=== PATIENT | male | born 1945 | race American Indian/Alaskan Native ===

== ENCOUNTER 2022-06-04 13:47 | Inpatient (IN) | payer MEDICARE ==
--- NOTE | 2022-06-04 14:48 | XRay Report ---
CHEST 1 VIEW 06/04/2022 2:31 PM INDICATION / CLINICAL INFORMATION: Chest Pain. COMPARISON: None available. FINDINGS: SUPPORT DEVICES: None. HEART / MEDIASTINUM: No significant abnormality. LUNGS / PLEURA: No significant pulmonary or pleural abnormality. No pneumothorax. ADDITIONAL FINDINGS: No significant additional findings. IMPRESSION: 1. No acute findings. Signer Name: Josh Montilla Jr, MD Signed: 06/04/2022 2:44 PM Workstation Name: [id number]
[2022-06-04 14:54] LABS: Basophils # (Auto) 0.1 K/mm3 (0.0-0.1); Basophils % (Auto) 0.5 % (0.0-1.8); Eosinophils # (Auto) 0.1 K/mm3 (0.0-0.4); Eosinophils % (Auto) 1.4 % (0.0-4.3); Hematocrit 35.6 % (35.5-45.6); Hemoglobin 11.6 gm/dl (11.8-15.2); Lymphocytes # (Auto) 1.3 K/mm3 (1.2-5.4); Lymphocytes % (Auto) 12.6 % (13.4-35.0); Mean Corpuscular HGB Conc 33 % (32-34); Mean Corpuscular Volume 92 fl (84-94); Monocytes % (Auto) 9.5 % (0.0-7.3); Platelet Count 198 K/mm3 (140-440); Red Blood Count 3.89 M/mm3 (3.65-5.03); Red Cell Distribution Width 14.9 % (13.2-15.2)
--- NOTE | 2022-06-04 15:02 | Emergency Department Report ---
ED General Adult HPI - General Chief complaint: Chest Pain Stated complaint: NAUSEA/VOMITING/BRADYCARDIA Time Seen by Provider: 06/04/22 14:45 Source: patient, family, EMS ( EMS documentation not available at time of chart dictation ), RN notes reviewed Mode of arrival: Stretcher Limitations: Other (Patient is demented) - History of Present Illness Initial comments: The patient was evaluated in the emergency department for symptoms described in the history of present illness. He/she was evaluated in the context of the global COVID-19 pandemic, which necessitated consideration that the patient might be at risk for infection with the virus that causes COVID-19. Institutional protocols and algorithms that pertain to the evaluation of patients at risk for COVID-19 are in a state of rapid change based on information released by regulatory bodies including the CDC and federal and state organizations. These policies and algorithms were followed during the patient's care in the emergency department. Please note that these policies, procedures and recommendations changed on a rapid basis. This is a 77-year-old gentleman. Past medical history includes dementia, hypertension, diabetes, high cholesterol, and possible carotid artery disease. The patient himself is demented, and has no complaints. He denies physical pain. He is smiling and cooperative. He moves 4 extremities. He does not know why he is here. His primary care doctor is Dr. Yany Burton. History obtained from speaking to patient's [id number] As per the patient's , the patient was in his usual state of health, leaving primary care doctor's office to go home, she stopped to go into the shoe store, and reports that while in the car, the patient became unresponsive, gurgling, with his hat over his eyes. This lasted for a few seconds to a few minutes. She is not sure. There was no shaking episode that she is aware of. This resolved on its own. His current medications include benazepril, aspirin, valsartan, metoprolol, pioglitazone, atorvastatin, Plavix, and HCTZ. She further reports that the patient has had no vomiting, diarrhea, fevers or chills that she is aware of. She also believes that the patient had a recent echocardiogram, which she thinks was essentially unremarkable. Patient has no recollection of any of these events. EMS articulated to nursing staff that the patient has a heart rate in the high 40s -: Sudden Severity scale (0 -10): 0 Consistency: now resolved - Related Data Allergies Allergy/AdvReac Type Severity Reaction Status Date / Time No Known Allergies Allergy Unverified 06/04/22 14:15 ED Review of Systems ROS: Stated complaint: NAUSEA/VOMITING/BRADYCARDIA Other details as noted in HPI Comment: Unobtainable due to pts medical conditions (Review of systems as per family) Constitutional: denies: fever Eyes: denies: eye discharge Cardiovascular: syncope Gastrointestinal: denies: nausea, vomiting, hematemesis, melena, hematochezia Genitourinary: denies: frequency Neurological: confusion ED Past Medical Hx - Past Medical History Hx Hypertension: Yes Hx Diabetes: Yes Hx Dementia: Yes 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 Absent: nystagmus - ENT ENT exam: Present: normal exam, normal orophraynx, mucous membranes moist, normal external ear exam - Neck Neck exam: Present: normal inspection, full ROM. Absent: tenderness, meningismus - Respiratory Respiratory exam: Present: normal lung sounds bilaterally. Absent: respiratory distress - Cardiovascular Cardiovascular Exam: Present: normal rhythm, bradycardia, normal heart sounds. Absent: tachycardia, irregular rhythm, systolic murmur, diastolic murmur, rubs, gallop - GI/Abdominal GI/Abdominal exam: Present: soft. Absent: distended, tenderness, guarding, rebound, rigid, pulsatile mass - Rectal Rectal exam: Present: deferred - Extremities Exam Extremities exam: Present: normal inspection, full ROM, other (2+ pulses noted in the bilateral upper and lower extremities. There is no palpable cord. negative Homans sign. Muscular compartments are soft. The pelvis is stable.). Absent: pedal edema, calf tenderness - Back Exam Back exam: Present: normal inspection, full ROM. Absent: tenderness, CVA tenderness (R), CVA tenderness (L), paraspinal tenderness, vertebral tenderness - Neurological Exam Neurological exam: Present: other (Patient is awake and alert to name. The patient follows commands. The patient moves 4 extremities. Sensation is intact to light touch in 4 extremities.) - Psychiatric Psychiatric exam: Present: anxious - Skin Skin exam: Present: warm, dry, intact, normal color. Absent: rash ED Course Vital Signs 06/04/22 06/04/22 06/04/22 14:01 14:14 14:15 Temperature 97.8 F Pulse Rate 48 L 50 L Respiratory 20 20 Rate Blood Pressure 132/58 Blood Pressure 132/58 [Right] O2 Sat by Pulse 94 99 Oximetry 06/04/22 06/04/22 15:57 18:46 Temperature Pulse Rate 49 L 46 L Respiratory 20 20 Rate Blood Pressure Blood Pressure 129/49 129/49 [Right] O2 Sat by Pulse 98 96 Oximetry ED Medical Decision Making - Lab Data Result diagrams: 06/04/22 14:36 06/04/22 14:36 Vital Signs 06/04/22 06/04/22 06/04/22 14:01 14:14 14:15 Temperature 97.8 F Pulse Rate 48 L 50 L Respiratory 20 20 Rate Blood Pressure 132/58 Blood Pressure 132/58 [Right] O2 Sat by Pulse 94 99 Oximetry 06/04/22 06/04/22 15:57 18:46 Temperature Pulse Rate 49 L 46 L Respiratory 20 20 Rate Blood Pressure Blood Pressure 129/49 129/49 [Right] O2 Sat by Pulse 98 96 Oximetry Lab Results 06/04/22 06/04/22 06/04/22 Range/Units 14:25 14:36 14:36 WBC 10.3 (4.5-11.0) K/mm3 RBC 3.89 (3.65-5.03) M/mm3 Hgb 11.6 L (11.8-15.2) gm/dl Hct 35.6 (35.5-45.6) % MCV 92 (84-94) fl MCH 30 (28-32) pg MCHC 33 (32-34) % RDW 14.9 (13.2-15.2) % Plt Count 198 (140-440) K/mm3 Lymph % (Auto) 12.6 L (13.4-35.0) % [place] % (Auto) 9.5 H (0.0-7.3) % Eos % (Auto) 1.4 (0.0-4.3) % Baso % (Auto) 0.5 (0.0-1.8) % Lymph # (Auto) 1.3 (1.2-5.4) K/mm3 [place] # (Auto) 1.0 H (0.0-0.8) K/mm3 Eos # (Auto) 0.1 (0.0-0.4) K/mm3 Baso # (Auto) 0.1 (0.0-0.1) K/mm3 Seg Neutrophils % 76.0 H (40.0-70.0) % Seg Neutrophils # 7.8 H (1.8-7.7) K/mm3 PT 13.2 (12.2-14.9) Sec. INR 0.91 (0.87-1.13) APTT 31.1 (24.2-36.6) Sec. Sodium (137-145) mmol/L Potassium (3.6-5.0) mmol/L Chloride (98-107) mmol/L Carbon Dioxide (22-30) mmol/L Anion Gap mmol/L BUN (9-20) mg/dL Creatinine (0.8-1.3) mg/dL Estimated GFR ml/min BUN/Creatinine Ratio % Glucose (75-100) mg/dL POC Glucose 116 H (70-105) mg/dL Calcium (8.4-10.2) mg/dL Total Bilirubin (0.1-1.2) mg/dL AST (5-40) units/L ALT (7-56) units/L Alkaline Phosphatase (35-129) units/L Troponin T (0.00-0.029) ng/mL Total Protein (6.3-8.2) g/dL Albumin (3.9-5) g/dL Albumin/Globulin Ratio % TSH (0.270-4.200) mlU/mL Free T4 (0.76-1.46) ng/dL Salicylates (2.8-20.0) mg/dL Acetaminophen (10.0-30.0) ug/mL Plasma/Serum Alcohol (0-0.07) % 06/04/22 06/04/22 06/04/22 Range/Units 14:36 15:33 15:33 WBC (4.5-11.0) K/mm3 RBC (3.65-5.03) M/mm3 Hgb (11.8-15.2) gm/dl Hct (35.5-45.6) % MCV (84-94) fl MCH (28-32) pg MCHC (32-34) % RDW (13.2-15.2) % Plt Count (140-440) K/mm3 Lymph % (Auto) (13.4-35.0) % [place] % (Auto) (0.0-7.3) % Eos % (Auto) (0.0-4.3) % Baso % (Auto) (0.0-1.8) % Lymph # (Auto) (1.2-5.4) K/mm3 [place] # (Auto) (0.0-0.8) K/mm3 Eos # (Auto) (0.0-0.4) K/mm3 Baso # (Auto) (0.0-0.1) K/mm3 Seg Neutrophils % (40.0-70.0) % Seg Neutrophils # (1.8-7.7) K/mm3 PT (12.2-14.9) Sec. INR (0.87-1.13) APTT (24.2-36.6) Sec. Sodium 141 (137-145) mmol/L Potassium 3.7 (3.6-5.0) mmol/L Chloride 103.5 (98-107) mmol/L Carbon Dioxide 27 (22-30) mmol/L Anion Gap 14 mmol/L BUN 14 (9-20) mg/dL Creatinine 1.0 (0.8-1.3) mg/dL Estimated GFR > 60 ml/min BUN/Creatinine Ratio 14 % Glucose 133 H (75-100) mg/dL POC Glucose (70-105) mg/dL Calcium 8.9 (8.4-10.2) mg/dL Total Bilirubin 0.20 (0.1-1.2) mg/dL AST 32 (5-40) units/L ALT 14 (7-56) units/L Alkaline Phosphatase 84 (35-129) units/L Troponin T < 0.010 (0.00-0.029) ng/mL Total Protein 6.6 (6.3-8.2) g/dL Albumin 4.0 (3.9-5) g/dL Albumin/Globulin Ratio 1.5 % TSH 3.980 (0.270-4.200) mlU/mL Free T4 1.14 (0.76-1.46) ng/dL Salicylates (2.8-20.0) mg/dL Acetaminophen (10.0-30.0) ug/mL Plasma/Serum Alcohol (0-0.07) % 06/04/22 06/04/22 06/04/22 Range/Units 15:33 15:33 15:33 WBC (4.5-11.0) K/mm3 RBC (3.65-5.03) M/mm3 Hgb (11.8-15.2) gm/dl Hct (35.5-45.6) % MCV (84-94) fl MCH (28-32) pg MCHC (32-34) % RDW (13.2-15.2) % Plt Count (140-440) K/mm3 Lymph % (Auto) (13.4-35.0) % [place] % (Auto) (0.0-7.3) % Eos % (Auto) (0.0-4.3) % Baso % (Auto) (0.0-1.8) % Lymph # (Auto) (1.2-5.4) K/mm3 [place] # (Auto) (0.0-0.8) K/mm3 Eos # (Auto) (0.0-0.4) K/mm3 Baso # (Auto) (0.0-0.1) K/mm3 Seg Neutrophils % (40.0-70.0) % Seg Neutrophils # (1.8-7.7) K/mm3 PT (12.2-14.9) Sec. INR (0.87-1.13) APTT (24.2-36.6) Sec. Sodium (137-145) mmol/L Potassium (3.6-5.0) mmol/L Chloride (98-107) mmol/L Carbon Dioxide (22-30) mmol/L Anion Gap mmol/L BUN (9-20) mg/dL Creatinine (0.8-1.3) mg/dL Estimated GFR ml/min BUN/Creatinine Ratio % Glucose (75-100) mg/dL POC Glucose (70-105) mg/dL Calcium (8.4-10.2) mg/dL Total Bilirubin (0.1-1.2) mg/dL AST (5-40) units/L ALT (7-56) units/L Alkaline Phosphatase (35-129) units/L Troponin T (0.00-0.029) ng/mL Total Protein (6.3-8.2) g/dL Albumin (3.9-5) g/dL Albumin/Globulin Ratio % TSH (0.270-4.200) mlU/mL Free T4 (0.76-1.46) ng/dL Salicylates < 0.3 L (2.8-20.0) mg/dL Acetaminophen 5.0 L (10.0-30.0) ug/mL Plasma/Serum Alcohol < 0.01 (0-0.07) % - EKG Data -: EKG Interpreted by Ca Rate: bradycardia - EKG Data When compared to previous EKG there are: previous EKG unavailable (There is no prior EKG available for comparison) 06/04/22 19:21 The EKG is interpreted at 14: 14 Sinus bradycardia, rate 49 bpm. Borderline leftward axis deviation, normal P wave axis, left ventricular hypertrophy, QTC is 4 3 6 ms. This is an abnormal EKG. This is not a STEMI. - Radiology Data Radiology results: pending, report reviewed, image reviewed CHEST 1 VIEW 06/04/2022 2:31 PM INDICATION / CLINICAL INFORMATION: Chest Pain. COMPARISON: None available. FINDINGS: SUPPORT DEVICES: None. HEART / MEDIASTINUM: No significant abnormality. LUNGS / PLEURA: No significant pulmonary or pleural abnormality. No pneumothorax. ADDITIONAL FINDINGS: No significant additional findings. IMPRESSION: 1. No acute findings. Signer Name: Josh Montilla Jr, MD Signed: 06/04/2022 1:44 PM Workstation Name: [id number] CT HEAD WITHOUT CONTRAST INDICATION / CLINICAL INFORMATION: Transient alteration in awareness. TECHNIQUE: All CT scans at this location are performed using CT dose reduction for ALARA by means of automated exposure control. COMPARISON: None available. FINDINGS: BRAIN PARENCHYMA: No acute intracranial hemorrhage. No evidence of recent infarct. No mass effect or midline shift. There is age-appropriate atrophy with probable chronic microvascular ischemic changes along the periventricular white matter. VENTRICULAR SYSTEM/EXTRA-AXIAL SPACES: Ventricles are normal for age. No extra-axial fluid collection. ORBITS: Normal as visualized. SKELETAL SYSTEM/SOFT TISSUES: Normal bones and soft tissues. PARANASAL SINUSES/MASTOID AIR CELLS: No significant abnormality. ADDITIONAL FINDINGS: There is moderate calcification of the internal carotid arteries. IMPRESSION: 1. No acute intracranial abnormality. 2. Additional find ings as above. Signer Name: Refugio Jurado MD Signed: 06/04/2022 2:30 PM Workstation Name: [id number] - Medical Decision Making Differential diagnosis, including but not limited to: Orthostasis, vagal event, structural cardiac disease, polypharmacy, UTI intracranial hemorrhage, pneumonia Assessment and plan: 77-year-old gentleman, who is currently afebrile, with reassuring vital signs, protecting his airway and moving 4 extremities, presenting today with asymptomatic bradycardia, heart rate 49 to 50 bpm, in the setting of taking metoprolol, however blood pressure is acceptable. Bradycardia likely secondary to medications. This is unlikely to be the cause of his loss of consciousness. CT scan brain unremarkable. X-ray chest unremarkable. Laboratory studies c urrently nondiagnostic. Currently awaiting urinalysis. Patient admitted to the medical service under the care of Dr. Eusebio Pineda for observation. Critical care attestation.: If time is entered above; I have spent that time in minutes in the direct care of this critically ill patient, excluding procedure time. ED Disposition Clinical Impression: Bradycardia, Dementia, Transient alteration of awareness Disposition: ADMITTED INPATIENT Is pt being admited?: Yes Does the pt Need Aspirin: Yes Condition: Stable
[2022-06-04 15:11] LABS: INR 0.91 (0.87-1.13)
[2022-06-04 15:12] LABS: Partial Thromboplastin Time 31.1 Sec. (24.2-36.6)
[2022-06-04 15:20] LABS: Alanine Aminotransferase 14 units/L (7-56); BUN/Creatinine Ratio 14; Blood Urea Nitrogen 14 mg/dL (9-20); Calcium 8.9 mg/dL (8.4-10.2); Hemolysis Index 14
--- NOTE | 2022-06-04 15:34 | Cat Scan Report ---
CT HEAD WITHOUT CONTRAST INDICATION / CLINICAL INFORMATION: Transient alteration in awareness. TECHNIQUE: All CT scans at this location are performed using CT dose reduction for ALARA by means of automated exposure control. COMPARISON: None available. FINDINGS: BRAIN PARENCHYMA: No acute intracranial hemorrhage. No evidence of recent infarct. No mass effect or midline shift. There is age-appropriate atrophy with probable chronic microvascular ischemic changes along the periventricular white matter. VENTRICULAR SYSTEM/EXTRA-AXIAL SPACES: Ventricles are normal for age. No extra-axial fluid collection . ORBITS: Normal as visualized. SKELETAL SYSTEM/SOFT TISSUES: Normal bones and soft tissues. PARANASAL SINUSES/MASTOID AIR CELLS: No significant abnormality. ADDITIONAL FINDINGS: There is moderate calcification of the internal carotid arteries. IMPRESSION: 1. No acute intracranial abnormality. 2. Additional findings as above. Signer Name: Refugio Jurado MD Signed: 06/04/2022 3:30 PM Workstation Name: [id number]
[2022-06-04] MEDS ORDERED: ASPIRIN 81 MG TAB CHEW PO ONE (19:25)
[2022-06-04] MEDS ORDERED: ONDANSETRON 4 MG/2 ML INJ IV PRN (20:10)
[2022-06-04] MEDS ORDERED: ACETAMINOPHEN 325 MG TAB PO PRN (20:10)
[2022-06-04 21:19] LABS: Color,Urine Yellow (Yellow)
[2022-06-04 21:24] LABS: Hyaline Casts,Urine 4 /LPF; WBC,Urine < 1.0 /HPF (0.0-6.0)
[2022-06-04] MEDS ORDERED: ASPIRIN 81 MG TAB CHEW ONE (22:29)
--- NOTE | 2022-06-05 01:34 | History and Physical Report ---
History of Present Illness Date of examination: 06/04/22 Date of admission: 06/04/22 20:10 Chief complaint: Passed out while in the car History of present illness: 77-year-old male with history of hypertension diabetes and dementia presents with altered sensorium and passed out while in the car. Patient is now alert and oriented. As per the patient's , the patient was in his usual state of health, leaving primary care doctor's office to go home, she stopped to go into the shoe store, and reports that while in the car, the patient became unresponsive, gurgling, with his hat over his eyes. This lasted for a few seconds to a few minutes. She is not sure. There was no shaking episode that she is aware of. This resolved on its own. His current medications include benazepril, aspirin, valsartan, metoprolol, pioglitazone, atorvastatin, Plavix, and HCTZ. She further reports that the patient has had no vomiting, diarrhea, fevers or chills that she is aware of. She also believes that the patient had a recent echocardiogram, which she thinks was essentially unremarkable. Patient has no recollection of any of these events. Also patient was bradycardic on scene with heart rate of 48. 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% - Social History --Smoking Status: Never Smoker --Substance Use Type: None Review of Systems ROS: Stated complaint: NAUSEA/VOMITING/BRADYCARDIA Other details as noted in HPI Comment: Unobtainable due to pts medical conditions (Review of systems as per family) Constitutional: denies: fever Eyes: denies: eye discharge Cardiovascular: syncope Gastrointestinal: denies: nausea, vomiting, hematemesis, melena, hematochezia Genitourinary: denies: frequency Neurological: confusion Medications and Allergies Allergies Allergy/AdvReac Type Severity Reaction Status Date / Time No Known Allergies Allergy Unverified 06/04/22 14:15 Active Meds: Active Medications Acetaminophen (Acetaminophen 325 Mg Tab) 650 mg PO Q4H PRN PRN Reason: Pain MILD(1-3)/Fever >100.5/CELIS Ondansetron HCl (Ondansetron 4 Mg/2 Ml Inj) 4 mg IV Q8H PRN PRN Reason: Nausea And Vomiting Sodium Chloride (Sodium Chloride 0.9% 10 Ml Flush Syringe) 10 ml IV BID ERIC Last Admin: 06/04/22 22:33 Dose: 10 ml Sodium Chloride (Sodium Chloride 0.9% 10 Ml Flush Syringe) 10 ml IV PRN PRN PRN Reason: LINE FLUSH Exam - Constitutional Vitals: Temp Pulse Resp BP Pulse Ox 97.8 F 90 15 127/66 98 06/04/22 14:01 06/04/22 23:42 06/04/22 23:42 06/04/22 23:42 06/04/22 23:42 General appearance: Present: no acute distress, well-nourished - EENT Eyes: Present: PERRL ENT: hearing intact, clear oral mucosa - Neck Neck: Present: supple, normal ROM - Respiratory Respiratory effort: normal Respiratory: bilateral: CTA - Cardiovascular Heart rate: 50 Rhythm: regular Heart Sounds: Present: S1 & S2. Absent: rub, click - Extremities Extremities: pulses symmetrical, No edema Peripheral Pulses: within normal limits - Abdominal General gastrointestinal: Present: soft, non-tender, non-distended, normal bowel sounds Male genitourinary: Present: normal - Integumentary Integumentary: Present: clear, warm, dry - Musculoskeletal Musculoskeletal: gait normal, strength equal bilaterally - Psychiatric Psychiatric: appropriate mood/affect, intact judgment & insight - Neurologic Neurologic: CNII-XII intact, moves all extremities HEART Score - HEART Score Age: > 65 Risk factors: 1-2 risk factors Troponin: Troponin T < 0.010 ng/mL (0.00-0.029) 06/04/22 14:36 Troponin: < normal limit Results - Labs CBC & Chem 7: 06/05/22 05:14 06/05/22 05:14 Labs: Laboratory Last Values WBC 10.3 K/mm3 (4.5-11.0) 06/04/22 14:36 RBC 3.89 M/mm3 (3.65-5.03) 06/04/22 14:36 Hgb 11.6 gm/dl (11.8-15.2) L 06/04/22 14:36 Hct 35.6 % (35.5-45.6) 06/04/22 14:36 MCV 92 fl (84-94) 06/04/22 14:36 MCH 30 pg (28-32) 06/04/22 14:36 MCHC 33 % (32-34) 06/04/22 14:36 RDW 14.9 % (13.2-15.2) 06/04/22 14:36 Plt Count 198 K/mm3 (140-440) 06/04/22 14:36 Lymph % (Auto) 12.6 % (13.4-35.0) L 06/04/22 14:36 [place] % (Auto) 9.5 % (0.0-7.3) H 06/04/22 14:36 Eos % (Auto) 1.4 % (0.0-4.3) 06/04/22 14:36 Baso % (Auto) 0.5 % (0.0-1.8) 06/04/22 14:36 Lymph # (Auto) 1.3 K/mm3 (1.2-5.4) 06/04/22 14:36 [place] # (Auto) 1.0 K/mm3 (0.0-0.8) H 06/04/22 14:36 Eos # (Auto) 0.1 K/mm3 (0.0-0.4) 06/04/22 14:36 Baso # (Auto) 0.1 K/mm3 (0.0-0.1) 06/04/22 14:36 Seg Neutrophils % 76.0 % (40.0-70.0) H 06/04/22 14:36 Seg Neutrophils # 7.8 K/mm3 (1.8-7.7) H 06/04/22 14:36 PT 13.2 Sec. (12.2-14.9) 06/04/22 14:36 INR 0.91 (0.87-1.13) 06/04/22 14:36 APTT 31.1 Sec. (24.2-36.6) 06/04/22 14:36 Sodium 141 mmol/L (137-145) 06/04/22 14:36 Potassium 3.7 mmol/L (3.6-5.0) 06/04/22 14:36 Chloride 103.5 mmol/L (98-107) 06/04/22 14:36 Carbon Dioxide 27 mmol/L (22-30) 06/04/22 14:36 Anion Gap 14 mmol/L 06/04/22 14:36 BUN 14 mg/dL (9-20) 06/04/22 14:36 Creatinine 1.0 mg/dL (0.8-1.3) 06/04/22 14:36 Estimated GFR > 60 ml/min 06/04/22 14:36 BUN/Creatinine Ratio 14 % 06/04/22 14:36 Glucose 133 mg/dL (75-100) H 06/04/22 14:36 POC Glucose 116 mg/dL (70-105) H 06/04/22 14:25 Calcium 8.9 mg/dL (8.4-10.2) 06/04/22 14:36 Total Bilirubin 0.20 mg/dL (0.1-1.2) 06/04/22 14:36 AST 32 units/L (5-40) 06/04/22 14:36 ALT 14 units/L (7-56) 06/04/22 14:36 Alkaline Phosphatase 84 units/L (35-129) 06/04/22 14:36 Troponin T < 0.010 ng/mL (0.00-0.029) 06/04/22 14:36 Total Protein 6.6 g/dL (6.3-8.2) 06/04/22 14:36 Albumin 4.0 g/dL (3.9-5) 06/04/22 14:36 Albumin/Globulin Ratio 1.5 % 06/04/22 14:36 TSH 3.980 mlU/mL (0.270-4.200) 06/04/22 15:33 Free T4 1.14 ng/dL (0.76-1.46) 06/04/22 15:33 Urine Color Yellow (Yellow) 06/04/22 15:43 Urine Turbidity Clear (Clear) 06/04/22 15:43 Specific [place] (Man) 1.020 (1.003-1.030) 06/04/22 15:43 Ur Protein (Man) Negative mg/dL (Negative) 06/04/22 15:43 Ur Ketones (Man) Negative (Negative) 06/04/22 15:43 Ur Nitrite (Man) Negative (Negative) 06/04/22 15:43 Urine Bilirubin (Man) Negative (Negative) 06/04/22 15:43 Leukocyte Esterase (Man) Negative (Negative) 06/04/22 15:43 Urine WBC (Auto) < 1.0 /HPF (0.0-6.0) 06/04/22 15:43 Urine RBC (Auto) 5.0 /HPF (0.0-6.0) 06/04/22 15:43 U Epithel Cells (Auto) 1.0 /HPF (0-13.0) 06/04/22 15:43 Urine RBC (Manual) 1+ (Negative) 06/04/22 15:43 Hyaline Casts 4 /LPF 06/04/22 15:43 Salicylates < 0.3 mg/dL (2.8-20.0) L 06/04/22 15:33 Acetaminophen 5.0 ug/mL (10.0-30.0) L 06/04/22 15:33 Plasma/Serum Alcohol < 0.01 % (0-0.07) 06/04/22 15:33 Short CBC 06/04/22 06/05/22 Range/Units 14:36 05:14 WBC 10.3 6.3 (4.5-11.0) K/mm3 Hgb 11.6 L 10.8 L (11.8-15.2) gm/dl Hct 35.6 31.8 L (35.5-45.6) % Plt Count 198 181 (140-440) K/mm3 BMP 06/04/22 06/05/22 14:36 05:14 Sodium 141 140 Potassium 3.7 3.5 L Chloride 103.5 103.6 Carbon Dioxide 27 27 BUN 14 15 Creatinine 1.0 1.0 Glucose 133 H 102 H Calcium 8.9 8.8 Cardiac Enzymes 06/04/22 Range/Units 14:36 Troponin T < 0.010 (0.00-0.029) ng/mL Liver Function 06/04/22 06/05/22 Range/Units 14:36 05:14 Total Bilirubin 0.20 0.20 (0.1-1.2) mg/dL AST 32 29 (5-40) units/L ALT 14 12 (7-56) units/L Alkaline Phosphatase 84 75 (35-129) units/L Albumin 4.0 3.7 L (3.9-5) g/dL Urine 06/04/22 Range/Units 15:43 Urine Color Yellow (Yellow) - Imaging and Cardiology EKG: report reviewed (Sinus bradycardia heart rate of 50) Billy/IV: Voiding Method Urinal Assessment and Plan Advance Directives: Yes (Full code) VTE prophylaxis?: Chemical Plan of care discussed with patient/family: Yes - Patient Problems (1) Syncope Current Visit: Yes Status: Acute (2) Syncope Current Visit: Yes Status: Acute Qualifiers: Syncope type: vasovagal syncope Qualified Code(s): R55 - Syncope and collapse Plan to address problem: Syncope work-up Possible vasovagal Echocardiogram for ejection fraction and to rule out aortic stenosis, mitral stenosis and hypertrophic cardiomyopathy Also carotid duplex scan to rule out any carotid stenosis Telemetry monitoring (3) Bradycardia Current Visit: Yes Status: Acute Plan to address problem: Rule out sick sinus syndrome Cardiology consulted (4) Hypertension Current Visit: Yes Status: Chronic Qualifiers: Hypertension type: primary hypertension Qualified Code(s): I10 - Essential (primary) hypertension Plan to address problem: Continue antihypertensives (5) DVT prophylaxis Current Visit: Yes Status: Acute Plan to address problem: On heparin and GI prophylaxis (6) Advance care planning Current Visit: Yes Status: Acute Plan to address problem: Discussed with about disease education, care plan diagnosis and prognosis. Patient is full code. Patient acknowledges understanding with care plan. +30 minutes.
[2022-06-05] MEDS ORDERED: ACETAMINOPHEN 325 MG TAB PO PRN (01:35)
[2022-06-05] MEDS ORDERED: oxyCODONE /ACETAMINOPHEN 5-325MG TAB PO PRN (01:35)
[2022-06-05] MEDS ORDERED: MORPHINE 2 MG/1 ML INJ IV PRN (01:35)
[2022-06-05] MEDS ORDERED: ONDANSETRON 4 MG/2 ML INJ IV PRN (01:35)
[2022-06-05 05:47] LABS: Basophils % (Auto) 0.4 % (0.0-1.8); Eosinophils # (Auto) 0.2 K/mm3 (0.0-0.4); Eosinophils % (Auto) 2.7 % (0.0-4.3); Hematocrit 31.8 % (35.5-45.6); Hemoglobin 10.8 gm/dl (11.8-15.2); Lymphocytes # (Auto) 1.6 K/mm3 (1.2-5.4); Lymphocytes % (Auto) 25.7 % (13.4-35.0); Mean Corpuscular HGB Conc 34 % (32-34); Mean Corpuscular Volume 90 fl (84-94); Monocytes # (Auto) 0.7 K/mm3 (0.0-0.8); Monocytes % (Auto) 11.7 % (0.0-7.3); Platelet Count 181 K/mm3 (140-440); Red Blood Count 3.54 M/mm3 (3.65-5.03); Red Cell Distribution Width 14.7 % (13.2-15.2)
[2022-06-05 06:11] LABS: Alanine Aminotransferase 12 units/L (7-56); Albumin 3.7 g/dL (3.9-5); BUN/Creatinine Ratio 15; Blood Urea Nitrogen 15 mg/dL (9-20); Calcium 8.8 mg/dL (8.4-10.2); Hemolysis Index 7
[2022-06-05] MEDS: SODIUM CHLORIDE 0.9% 1000 ML 1,000 ML IV SCH ×2 (06:46→20:13)
--- NOTE | 2022-06-05 10:06 | Vascular Lab Report ---
DUPLEX DOPPLER ULTRASOUND CAROTID, BILATERAL INDICATION / CLINICAL INFORMATION: syncope. COMPARISON: None available. FINDINGS: RIGHT CAROTID: - PLAQUE ESTIMATE (%): < 50% - CCA velocity: 266 cm/sec. - ICA peak systolic velocity: 110 cm/sec. - ICA/CCA PSV Ratio: 0.4 Right Vertebral Artery: Antegrade flow. LEFT CAROTID: - PLAQUE ESTIMATE: < 50% - CCA velocity: 202 cm/sec. - ICA peak systolic velocity: 292 cm/sec. - ICA/CCA PSV Ratio: 1.4 Left Vertebral Artery: Antegrade flow. IMPRESSION: 1. Right Internal Carotid Artery: CCA velocity is elevated suggesting stenosis in the mid CCA approxi mately greater than 70% but visualization with elevated velocity. No severe ICA stenosis 2. Left Internal Carotid Artery: >70% diameter stenosis but less than total occlusion Velocity criteria are extrapolated from diameter data as defined by the Society of Radiologists in Ul trasound Consensus Conference, Radiology 2003; 229;340-346. NO STENOSIS (NORMAL) * Plaque = none; ICA PSV < 125 cm/sec; ICA/CCA PSV Ratio < 2.0 <50% STENOSIS * Plaque < 50%; ICA PSV < 125 cm/sec; ICA/CCA PSV Ratio < 2.0 50-69% STENOSIS * Plaque > 50%; ICA PSV = 125-230 cm/sec; ICA/CCA PSV Ratio = 2.0-4.0 >70% BUT <100% STENOSIS * Plaque > 50%; ICA PSV > 230 cm/sec; ICA/CCA PSV Ratio > 4.0 NEAR OCCLUSION * Plaque = visible lumen; ICA PSV = high/low/none; ICA/CCA PSV Ratio = variable TOTAL OCCLUSION * Plaque = no lumen; ICA PSV = none; ICA/CCA PSV Ratio = N/A Signer Name: Alexis Dc MD Signed: 06/05/2022 10:02 AM Workstation Name: [id number]
[2022-06-05] MEDS: FAMOTIDINE 20 MG TAB PO SCH ×2 (13:20→21:01)
--- NOTE | 2022-06-05 14:36 | Consultation ---
History of Present Illness Consult date: 06/05/22 Consult reason: syncope History of present illness: The patient is a 69-year-old man with a history of hypertension and carotid dise ase. History obtained from the patient's niece reports that he has bilateral carotid artery disease, with 80% on the right and 60% on the left, managed conservatively by the vascular unit at [facility]. She reports that they recommended conservative management in the absence of symptoms. There is no history of coronary artery disease or prior significant cardiac history. For his hypertension, his medications include metoprolol 100 mg twice daily, and Plavix 75 mg daily for his history of carotid disease. The patient was brought to the hospital following a syncopal episode that occurred in the car on the way home from a routine PCP visit. The niece who was driving him home stated that the patient suddenly became unresponsive, with eyes rolled back, and was foaming at the mouth. She thought he was having a seizure based on her direct observation, but does not report any tonic-clonic muscle activity. When the septic tank service technician arrived, they found that he had a marked sinus bradycardia with heart rate in the high 40s. It will be noted that the patient had received 100 mg dose of his metoprolol earlier that morning. EKG on presentation was sinus bradycardia 49, left ventricular hypertrophy by voltage criteria, otherwise normal ECG with no acute ischemic changes. Chest x-ray was normal-sized cardiac silhouette, and clear lungs. A TSH level done was normal at 3.8. Currently, patient is comfortable on bedrest, sinus rate is now 69. Past History Past Medical History: hypertension, PVD (Carotid disease) Medications and Allergies Allergies Allergy/AdvReac Type Severity Reaction Status Date / Time No Known Allergies Allergy Unverified 06/04/22 14:15 Home Medications Medication Instructions Recorded Confirmed Last Taken Type Aspirin [Aspirin BABY CHEW TAB] 81 mg PO DAILY 06/05/22 06/05/22 Unknown History Atorvastatin [Lipitor Tab] 40 mg PO QHS 06/05/22 06/05/22 Unknown History Brimonidine Tartrate [Alphagan P 1 drop OU BID 06/05/22 06/05/22 Unknown History 0.1%] Clopidogrel [Plavix] 75 mg PO QDAY 06/05/22 06/05/22 Unknown History Metoprolol [Lopressor] 100 mg PO BID 06/05/22 06/05/22 Unknown History Pioglitazone HCl [Actos] 45 mg PO DAILY 06/05/22 06/05/22 Unknown History Valsartan [Diovan] 40 mg PO BID 06/05/22 06/05/22 Unknown History donepeziL [Aricept] 10 mg PO QDAY 06/05/22 06/05/22 Unknown History hydroCHLOROthiazide [HCTZ] 25 mg PO DAILY 06/05/22 06/05/22 Unknown History Active Meds: Active Medications Acetaminophen (Acetaminophen 325 Mg Tab) 650 mg PO Q4H PRN PRN Reason: Pain MILD(1-3)/Fever >100.5/CELIS Famotidine (Famotidine 20 Mg Tab) 20 mg PO BID [facility] Last Admin: 06/05/22 13:20 Dose: 20 mg Sodium Chloride (Nacl 0.9% 1000 Ml) 1,000 mls @ 75 mls/hr IV DIRECT ERIC Last Admin: 06/05/22 06:46 Dose: 75 mls/hr Morphine Sulfate (Morphine 2 Mg/1 Ml Inj) 2 mg IV Q4H PRN PRN Reason: Pain, Moderate (4-6) Ondansetron HCl (Ondansetron 4 Mg/2 Ml Inj) 4 mg IV Q8H PRN PRN Reason: Nausea And Vomiting Oxycodone/Acetaminophen (Oxycodone /Acetaminophen 5-325mg Tab) 1 tab PO Q6H PRN PRN Reason: Pain, Moderate (4-6) Sodium Chloride (Sodium Chloride 0.9% 10 Ml Flush Syringe) 10 ml IV BID [facility] Last Admin: 06/05/22 13:20 Dose: 10 ml Sodium Chloride (Sodium Chloride 0.9% 10 Ml Flush Syringe) 10 ml IV PRN PRN PRN Reason: LINE FLUSH Last Admin: 06/05/22 06:47 Dose: 10 ml Review of Systems Cardiovascular: syncope, no chest pain, no orthopnea, no palpitations, no rapid/irregular heart beat, no edema, no lightheadedness, no shortness of breath Physical Examination Vital Signs Temp Pulse Resp BP Pulse Ox 97.8 F 48 L 20 132/58 94 06/04/22 14:01 06/04/22 14:01 06/04/22 14:01 06/04/22 14:01 06/04/22 14:01 General appearance: no acute distress HEENT: Positive: PERRL Neck: Positive: neck supple Cardiac: Positive: Reg Rate and Rhythm Lungs: Positive: Decreased Breath Sounds Neuro: Positive: Grossly Intact Abdomen: Positive: Soft Male genitourinary: Positive: deferred Skin: Positive: Clear Extremities: Absent: edema Results 06/05/22 05:14 06/05/22 05:14 Cardiac Enzymes 06/04/22 06/05/22 Range/Units 14:36 05:14 AST 32 29 (5-40) units/L Coagulation 06/04/22 Range/Units 14:36 PT 13.2 (12.2-14.9) Sec. INR 0.91 (0.87-1.13) APTT 31.1 (24.2-36.6) Sec. CBC 06/04/22 06/05/22 Range/Units 14:36 05:14 WBC 10.3 6.3 (4.5-11.0) K/mm3 RBC 3.89 3.54 L (3.65-5.03) M/mm3 Hgb 11.6 L 10.8 L (11.8-15.2) gm/dl Hct 35.6 31.8 L (35.5-45.6) % Plt Count 198 181 (140-440) K/mm3 Lymph # (Auto) 1.3 1.6 (1.2-5.4) K/mm3 Mclean # (Auto) 1.0 H 0.7 (0.0-0.8) K/mm3 Eos # (Auto) 0.1 0.2 (0.0-0.4) K/mm3 Baso # (Auto) 0.1 0.0 (0.0-0.1) K/mm3 Comprehensive Metabolic Panel 06/04/22 06/05/22 Range/Units 14:36 05:14 Sodium 141 140 (137-145) mmol/L Potassium 3.7 3.5 L (3.6-5.0) mmol/L Chloride 103.5 103.6 (98-107) mmol/L Carbon Dioxide 27 27 (22-30) mmol/L BUN 14 15 (9-20) mg/dL Creatinine 1.0 1.0 (0.8-1.3) mg/dL Glucose 133 H 102 H (75-100) mg/dL Calcium 8.9 8.8 (8.4-10.2) mg/dL AST 32 29 (5-40) units/L ALT 14 12 (7-56) units/L Alkaline Phosphatase 84 75 (35-129) units/L Total Protein 6.6 5.8 L (6.3-8.2) g/dL Albumin 4.0 3.7 L (3.9-5) g/dL EKG interpretations - Telemetry EKG Rhythm: Sinus Bradycardia Assessment and Plan - Patient Problems (1) Syncope Current Visit: Yes Status: Acute Plan to address problem: 77-year-old man who was brought to the hospital with syncope. His presenting bradycardia with heart rate in the high 40s is notable, but patient was on 200 mg of metoprolol daily prior to his presentation. Heart rate is now 69 off metoprolol, and will be discontinued. Will recommend further evaluation of noncardiac etiologies of syncope such as seizures or TIA/CVA based on patient history of vascular disease, I will order follow-up carotid Doppler exam. An echocardiogram will be ordered for left ventricular function assessment.
--- NOTE | 2022-06-05 19:35 | Progress Note ---
Assessment and Plan - Patient Problems (1) Syncope Current Visit: Yes Status: Acute Qualifiers: Syncope type: vasovagal syncope Qualified Code(s): R55 - Syncope and collapse (2) Syncope Current Visit: Yes Status: Acute Qualifiers: Syncope type: vasovagal syncope Qualified Code(s): R55 - Syncope and collapse Plan to address problem: Syncope work-up Possible vasovagal Echocardiogram for ejection fraction and to rule out aortic stenosis, mitral stenosis and hypertrophic cardiomyopathy Also carotid duplex scan to rule out any carotid stenosis Telemetry monitoring (3) Bradycardia Current Visit: Yes Status: Acute Plan to address problem: Rule out sick sinus syndrome Cardiology consulted (4) Hypertension Current Visit: Yes Status: Chronic Qualifiers: Hypertension type: primary hypertension Qualified Code(s): I10 - Essential (primary) hypertension Plan to address problem: Continue antihypertensives (5) DVT prophylaxis Current Visit: Yes Status: Acute Plan to address problem: On heparin and GI prophylaxis (6) Advance care planning Current Visit: Yes Status: Acute Plan to address problem: Discussed with about disease education, care plan diagnosis and prognosis. Patient is full code. Patient acknowledges understanding with care plan. +30 minutes. Subjective Date of service: 06/05/22 Objective - Constitutional Vitals: Vital Signs - 12hr 06/05/22 06/05/22 06/05/22 08:08 08:41 11:12 Temperature 97.3 F L Pulse Rate 70 83 Respiratory 18 Rate Blood Pressure 107/53 O2 Sat by Pulse 99 99 Oximetry 06/05/22 15:26 Temperature 98.0 F Pulse Rate 68 Respiratory 17 Rate Blood Pressure 92/44 O2 Sat by Pulse 97 Oximetry - Labs CBC & Chem 7: 06/05/22 05:14 06/05/22 05:14 Labs: Abnormal lab results 06/05/22 06/05/22 Range/Units 05:14 05:14 RBC 3.54 L (3.65-5.03) M/mm3 Hgb 10.8 L (11.8-15.2) gm/dl Hct 31.8 L (35.5-45.6) % Alfalfa % (Auto) 11.7 H (0.0-7.3) % Potassium 3.5 L (3.6-5.0) mmol/L Glucose 102 H (75-100) mg/dL Total Protein 5.8 L (6.3-8.2) g/dL Albumin 3.7 L (3.9-5) g/dL HEART Score - HEART Score Age: > 65 Risk factors: 1-2 risk factors Troponin: Troponin T < 0.010 ng/mL (0.00-0.029) 06/04/22 14:36 Troponin: < normal limit
[2022-06-06 06:19] LABS: BUN/Creatinine Ratio 14; Blood Urea Nitrogen 11 mg/dL (9-20); Hemolysis Index 4
[2022-06-06] MEDS: FAMOTIDINE 20 MG TAB PO SCH (09:04)
--- NOTE | 2022-06-06 09:48 | Consultation ---
History of Present Illness - Reason for Consult Consult date: 06/06/22 Carotid artery stenosis - History of Present Illness Patient with a history of seizure-like episode with his eyes rolling back in his head and foaming from the lips. Per EMS, the patient was bradycardic. I the patient is undergoing cardiac work-up. He underwent a carotid duplex which demonstrates stenosis involving his common carotid arteries as well as internal carotid arteries artificially decreasing his ICA/CCA ratios. Per the patient's niece, the patient has known carotid artery stenosis and follows with [facility]. His last visit was in January. At time of examination, the patient is resting comfortably in bed eating breakfast Past History Past Medical History: hypertension, PVD (Carotid disease) Medications and Allergies Allergies Allergy/AdvReac Type Severity Reaction Status Date / Time No Known Allergies Allergy Unverified 06/04/22 14:15 Home Medications Medication Instructions Recorded Confirmed Last Taken Type Aspirin [Aspirin BABY CHEW TAB] 81 mg PO DAILY 06/05/22 06/05/22 Unknown History Atorvastatin [Lipitor Tab] 40 mg PO QHS 06/05/22 06/05/22 Unknown History Brimonidine Tartrate [Alphagan P 1 drop OU BID 06/05/22 06/05/22 Unknown History 0.1%] Clopidogrel [Plavix] 75 mg PO QDAY 06/05/22 06/05/22 Unknown History Metoprolol [Lopressor] 100 mg PO BID 06/05/22 06/05/22 Unknown History Pioglitazone HCl [Actos] 45 mg PO DAILY 06/05/22 06/05/22 Unknown History Valsartan [Diovan] 40 mg PO BID 06/05/22 06/05/22 Unknown History donepeziL [Aricept] 10 mg PO QDAY 06/05/22 06/05/22 Unknown History hydroCHLOROthiazide [HCTZ] 25 mg PO DAILY 06/05/22 06/05/22 Unknown History Active Meds: Active Medications Acetaminophen (Acetaminophen 325 Mg Tab) 650 mg PO Q4H PRN PRN Reason: Pain MILD(1-3)/Fever >100.5/CELIS Famotidine (Famotidine 20 Mg Tab) 20 mg PO BID [facility] Last Admin: 06/06/22 09:04 Dose: 20 mg Sodium Chloride (Nacl 0.9% 1000 Ml) 1,000 mls @ 75 mls/hr IV DIRECT [facility] Last Admin: 06/05/22 20:13 Dose: 75 mls/hr Morphine Sulfate (Morphine 2 Mg/1 Ml Inj) 2 mg IV Q4H PRN PRN Reason: Pain, Moderate (4-6) Ondansetron HCl (Ondansetron 4 Mg/2 Ml Inj) 4 mg IV Q8H PRN PRN Reason: Nausea And Vomiting Oxycodone/Acetaminophen (Oxycodone /Acetaminophen 5-325mg Tab) 1 tab PO Q6H PRN PRN Reason: Pain, Moderate (4-6) Sodium Chloride (Sodium Chloride 0.9% 10 Ml Flush Syringe) 10 ml IV BID [facility] Last Admin: 06/06/22 09:04 Dose: 10 ml Sodium Chloride (Sodium Chloride 0.9% 10 Ml Flush Syringe) 10 ml IV PRN PRN PRN Reason: LINE FLUSH Last Admin: 06/05/22 06:47 Dose: 10 ml Review of Systems ROS unobtainable: due to mental status Exam - Constitutional Vitals: Temp Pulse Resp BP Pulse Ox 97.9 F 69 18 137/48 98 06/06/22 08:00 06/06/22 08:00 06/06/22 08:00 06/06/22 08:00 06/06/22 08:00 General appearance: Present: no acute distress - EENT ENT: hearing intact - Neck Neck: Present: supple, normal ROM - Respiratory Respiratory effort: normal - Abdominal General gastrointestinal: Present: deferred Male genitourinary: Present: deferred - Rectal Rectal Exam: deferred - Psychiatric Psychiatric: cooperative Results - Labs CBC & Chem 7: 06/05/22 05:14 06/06/22 04:59 Labs: Abnormal lab results 06/06/22 Range/Units 04:59 Glucose 108 H (75-100) mg/dL Calcium 8.0 L (8.4-10.2) mg/dL Assessment and Plan For further evaluation would consider a CTA of the neck for further evaluation of the carotid arteries. Would be beneficial to obtain records from [facility] to see patient's baseline degree of cardiac stenosis. Given the fact that the patient is currently under the care of vascular surgeon for his carotid stenosis, would not plan any interventions unless there is an acute need.
--- NOTE | 2022-06-06 10:21 | Electrocardiograph Report ---
[facility] Test Date: 2022-06-04 Test Time: 14:14:03 Pat Name: JUAN WILLIAMSON Department: Room: A485 1 Gender: M Weld Fitter: 911 : 1945 Requested By: EULALIA HANKS Order Number: [id number] Reading MD: Abner Yoder Measurements Intervals [place] Rate: 49 P: 60 RI: 173 QRS: -9 QRSD: 85 T: 25 QT: 483 QTc: 436 Interpretive Statements Sinus bradycardia No previous ECG available for comparison Electronically Signed On 06-06-2022 10:21:14 EDT by Abner Yoder
--- NOTE | 2022-06-06 12:18 | Progress Note ---
Assessment and Plan - Patient Problems (1) Syncope Current Visit: Yes Status: Acute Qualifiers: Syncope type: vasovagal syncope Qualified Code(s): R55 - Syncope and collapse Plan to address problem: 77-year-old man who was brought to the hospital with syncope. His presenting sinus bradycardia was on 200 mg of metoprolol daily, and was not likely etiology of his syncope. Will recommend further evaluation of noncardiac etiologies of syncope such as seizures, or TIA/CVA based on patient history of vascular disease. An echocardiogram is pending for left ventricular function assessment. Subjective Date of service: 06/06/22 Principal diagnosis: Syncope Interval history: Patient is resting comfortably in bed, no cardiac complaints, no new cardiac events reported. cardiac monitor technician shows mild sinus bradycardia at 58. Objective Vital Signs Temp Pulse Resp BP BP Pulse Ox 06/06/22 08:00 97.9 F 69 18 137/48 98 06/06/22 03:03 98.6 F 58 L 16 116/57 96 06/06/22 00:26 98.2 F 80 18 105/50 97 06/05/22 20:53 100 06/05/22 19:27 98.6 F 81 18 92/47 100 06/05/22 15:26 98.0 F 68 17 92/44 97 - Physical Examination General: Appears Well, No Apparent Distress HEENT: Positive: PERRL Neck: Positive: neck supple Cardiac: Positive: Regular Rhythm Lungs: Positive: Decreased Breath Sounds Neuro: Positive: Grossly Intact Abdomen: Positive: Soft Skin: Positive: Clear Extremities: Absent: edema - Labs and Meds Comprehensive Metabolic Panel 06/06/22 Range/Units 04:59 Sodium 141 (137-145) mmol/L Potassium 3.7 (3.6-5.0) mmol/L Chloride 106.9 (98-107) mmol/L Carbon Dioxide 30 (22-30) mmol/L BUN 11 (9-20) mg/dL Creatinine 0.8 (0.8-1.3) mg/dL Glucose 108 H (75-100) mg/dL Calcium 8.0 L (8.4-10.2) mg/dL - Imaging and Cardiology EKG: report reviewed (Sinus bradycardia heart rate of 50)
--- NOTE | 2022-06-06 13:11 | Event Note ---
Date: 06/06/22 Preliminary echocardiogram report shows normal left ventricular systolic function with ejection fraction 60 to 65%.
--- NOTE | 2022-06-06 16:33 | Discharge Summary ---
Providers - Providers Date of Admission: 06/04/22 20:10 Date of discharge: 06/06/22 Attending physician: ALMA ROSA MARTIN 06/05/22 01:41 Consult to Physician [CONS] Routine Comment: Consulting Provider: IRA WILL Physician Instructions: Reason For Exam: bradycardia 06/05/22 14:46 Consult to Physician [CONS] Routine Comment: Consulting Provider: ROGERS COPPOLA Physician Instructions: Reason For Exam: Syncope, carotid disease Primary care physician: FRIDA LUJAN Hospitalization Condition: Stable Disposition: 01 HOME / SELF CARE / HOMELESS - Discharge Diagnoses (1) Syncope Status: Acute Qualifiers: Syncope type: vasovagal syncope Qualified Code(s): R55 - Syncope and collapse (2) Syncope Status: Acute Qualifiers: Syncope type: vasovagal syncope Qualified Code(s): R55 - Syncope and collapse (3) Bradycardia Status: Acute (4) Hypertension Status: Chronic Qualifiers: Hypertension type: primary hypertension Qualified Code(s): I10 - Essential (primary) hypertension (5) DVT prophylaxis Status: Acute (6) Advance care planning Status: Acute Exam - Constitutional Vitals: Temp Pulse Resp BP Pulse Ox 97.9 F 80 18 137/48 98 06/06/22 08:00 06/06/22 08:50 06/06/22 08:00 06/06/22 08:00 06/06/22 08:00 Plan Activity: no restrictions Diet: low salt Follow up with: FRIDA LUJAN MD [Primary Care Provider] - 7 Days IRA WILL MD [Staff Physician] - 7 Days Prescriptions: Pioglitazone HCl [Actos] 45 mg PO DAILY #30 donepeziL [Aricept] 10 mg PO QDAY #30 Valsartan [Diovan] 40 mg PO BID #60 hydroCHLOROthiazide [HCTZ] 25 mg PO DAILY #30 Potassium Chloride [K-Dur] 10 meq PO QDAY #30 Clopidogrel [Plavix] 75 mg PO QDAY #30
[2022-06-06 16:52] VITALS: BP 95/51
--- NOTE | 2022-06-07 01:39 | Cat Scan Report ---
CT angio neck INDICATION / CLINICAL INFORMATION: 77 years Male; carotid stenosis. TECHNIQUE: Thin cut axial images obtained through the head during IV bolus contrast administration. S agittal, coronal, and 3 plane MIP reconstructions performed by the technologist. NASCET type criteria used evaluate stenoses. All CT scans at this location are performed using CT dose reduction for ALAR A by means of automated exposure control. Dense contrast seen in the right subclavian and brachioceph alic veins, which causes significant streak artifact. COMPARISON: None available. FINDINGS: ARCH: Normal aortic arch branching suggested. Note, there is some degree of wall thickening of the innominate and proximal common carotid arteries- some component of arteritis might be consideration. CAROTID ARTERIES: R CCA: There is significant narrowing seen from the origin of the right common carotid artery nearly to the carotid bifurcation region, related to what appears to be atherosclerotic disease, although d issection cannot entirely be excluded. No signs of a patent true and false lumen appreciated. Areas o f fatty type plaque are suggested. R ICA: Mild atherosclerotic disease seen in the region of the bulb. Mild narrowing seen-not felt to be hemodynamically significant. The vessel is otherwise mildly decreased in caliber throughout its co urse, most likely related to decreased perfusion pressure because the proximal near occlusion of the R CCA. Focal areas of moderate narrowing seen in the cavernous portion of the intracranial vessel as well. L CCA: Mild narrowing seen distally, just proximal bulb, related atherosclerotic disease. Findings d o not appear to be hemodynamically significant. Fatty type plaque is suggested. L ICA: Mild atherosclerotic disease seen in the region of the bulb. The vessel is otherwise widely p atent. VERTEBRAL ARTERIES: Codominant vertebral system seen. No significant stenosis appreciated. ADDITIONAL FINDINGS: Disc space narrowing seen at C3-4, C5-6, C6-7. Mild osseous foraminal narrowing seen at various levels from uncinate hypertrophy. There is disc disease at multiple levels, with encr oachment upon the cervical cord suggested. Most marked findings may be at C4-5. Multilevel, moderate facet hypertrophy noted. Follow-up with MRI, as clinically warranted. Peripheral bulla/blebs seen in the particularly in the right lung apex. Mild to moderate mucosal thickening in the ethmoids. There is also mild mucosal thickening in the inf erior mastoids, with small air-fluid levels seen. IMPRESSION: 1. 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 2. While mild atherosclerotic disease is present , arteritis/vasculitis might be consideration as wel l given the wall thickening seen around the proximal great vessels. Signer Name: Yoel Carlos MD, III Signed: 06/07/2022 1:35 AM Workstation Name: [id number]
== END 2022-06-06 19:20 | disposition home or self-care (01) | DRG 312 ==
LOC: ED 13:47 → 4A 20:10 → OBSVTOIN 20:10
PROVIDERS: ADMIT Internal Medicine; ATTEND Internal Medicine
DX: R55 Syncope and collapse (principal); R00.1 Bradycardia, unspecified; I10 Essential (primary) hypertension; F03.90 Unspecified dementia, unspecified severity, without behavioral disturbance, psychotic disturbance, mood disturbance, and anxiety; E78.00 Pure hypercholesterolemia, unspecified; E11.51 Type 2 diabetes mellitus with diabetic peripheral angiopathy without gangrene
CPT/HCPCS: 36415; 70450; 70498; 71045; 80048; 80053; 80320; 81001; 82962; 84439; 84443; 84484; 85025; 85610; 85730; 87086; 93005; 93306; 93880; G0378; C8929; G0480; J7030; Q9967